=== PATIENT | male | born 1955 | race African-American/Black ===

== ENCOUNTER 2016-08-03 04:29 | Emergency (ER) | payer MEDICAID ==
[~2016-08-03] VITALS: Ht 185.4 cm; Wt 79.0 kg
[2016-08-03 04:46] VITALS: BP 119/84
[2016-08-03] MEDS ORDERED: ACETAMINOPHEN 500MG TABLET PO ONE (05:15)
== END 2016-08-03 06:02 | disposition home or self-care (01) ==
LOC: ER 04:30
DX: M54.30 Sciatica, unspecified side (principal); E11.9 Type 2 diabetes mellitus without complications; I10 Essential (primary) hypertension; F20.9 Schizophrenia, unspecified; F31.9 Bipolar disorder, unspecified; F17.210 Nicotine dependence, cigarettes, uncomplicated
CPT/HCPCS: 99283